=== PATIENT | male | born 1990 | race Caucasian/White ===

== ENCOUNTER → 2016-06-08 | Outpatient (CLI) | payer BC ==
--- NOTE | 2016-06-08 12:04 | DIAGNOSTIC IMAGING REPORT ---
CT pelvis PELVIS W/ORAL CONT ONLY (CT) CLINICAL HISTORY: LOWER ABD PAIN pain TECHNIQUE: Transaxial acquisition with multi axial reformatted images COMPARISON STUDY: None FINDINGS: The appendix is not well seen in this exam possibly due to the scan being restricted to the pelvis. The inferior aspect of the cecum is unremarkable. Bowel pattern specifically within the pelvis is unremarkable. Bladder is midline. There is no evidence for inguinal hernia. There is no evidence for abnormal bowel containment within a hernia. Slight thickening of the fascial planes at the right and to a lesser extent left inguinal canal region felt to be secondary to an anatomic variation. There is again no well-defined inguinal hernia.. IMPRESSION: Negative study Electronically signed by: Leandro Combs M.D. 06/08/2016 12:02 PM Dictated Date/Time: 06/08/2016 11:59 AM
== END | disposition home or self-care (01) ==
LOC: C.CTS 11:12
PROVIDERS: ATTEND Nurse Practitioner
DX: R10.30 Lower abdominal pain, unspecified (principal)